=== PATIENT | female | born 1960 | race Caucasian/White ===

== ENCOUNTER 2021-04-24 15:43 | Emergency (ER) | payer OTHER ==
[2021-04-24 17:17] VITALS: BP 158/93; PULSE 118; RESP 16; TEMP 98.4
[2021-04-24] MEDS ORDERED: ACETAMINOPHEN TAB 325 MG TAB PO STA (17:18)
--- NOTE | 2021-04-24 17:20 | ED ---
Head Injury HPI - General Chief complaint: Head Injury Stated complaint: Head injury, [facility] Time Seen by Provider: 04/24/21 17:17 Source: family, RN notes reviewed Mode of arrival: ambulatory Limitations: no limitations - History of Present Illness Initial comments: 60-year-old female presents emergency Department chief complaint of head injury. Patient states she went to go pick something up at her facility states that they smashed her head into the wall. Patient has swelling of her left side of her forehead, pain. Patient didn't lose conscious. Patient complains of slight dizziness, headache. No blood thinners. Denies any neck pain patient states she has pain around her left eye denies any visual disturbance. - Related Data Home Medications Medication Instructions Recorded Confirmed Albuterol Inhaler (Mhu) [Ventolin 1 - 2 puff INHALATION Q6HR PRN 08/07/15 08/07/15 Hfa Inhaler] Albuterol Inhaler (Mhu) [Ventolin 1 - 2 puff INHALATION Q6HR PRN 08/07/15 08/07/15 Hfa Inhaler] FLUoxetine HCL [PROzac] 20 mg PO DAILY 08/07/15 08/07/15 Previous Rx's Medication Instructions Recorded Albuterol Inhaler (Mhu) [Ventolin 1 - 2 puff INHALATION Q6HR PRN #1 08/07/15 Hfa Inhaler (Mhu)] inhaler Albuterol Nebulized [Ventolin 2.5 mg INHALATION Q4H #25 nebu 08/07/15 Nebulized] predniSONE 60 mg PO DIRECTED #30 tab 08/07/15 Allergies/Adverse reactions: Allergies Allergy/AdvReac Type Severity Reaction Status Date / Time No Known Allergies Allergy Verified 04/24/21 17:14 Review of Systems ROS Statement: Those systems with pertinent positive or pertinent negative responses have been documented in the HPI. ROS Other: All systems not noted in ROS Statement are negative. Past Medical History Past Medical History: Asthma History of Any Multi-Drug Resistant Organisms: None Reported Past Surgical History: No Surgical Hx Reported Past Psychological History: Depression Smoking Status: Never smoker Past Alcohol Use History: None Reported Past Drug Use History: None Reported General Exam Limitations: no limitations General appearance: alert, in no apparent distress Head exam: Present: atraumatic, normocephalic. Absent: normal inspection (left sided forehead swelling, ecchymosis noted) Eye exam: Present: normal appearance, PERRL, EOMI, periorbital swelling. Absent: scleral icterus, conjunctival injection ENT exam: Present: normal exam, normal oropharynx, mucous membranes moist Neck exam: Present: normal inspection, full ROM. Absent: tenderness, meningismus, lymphadenopathy Respiratory exam: Present: normal lung sounds bilaterally. Absent: respiratory distress, wheezes, rales, rhonchi, stridor Cardiovascular Exam: Present: regular rate, normal rhythm, normal heart sounds. Absent: systolic murmur, diastolic murmur, rubs, gallop, clicks Neurological exam: Present: alert, oriented X3, CN II-XII intact, reflexes normal. Absent: motor sensory deficit Skin exam: Present: warm, dry, intact, normal color. Absent: rash Course Vital Signs 04/24/21 17:15 Temperature 98.4 F Pulse Rate 118 H Respiratory 16 Rate Blood Pressure 158/93 O2 Sat by Pulse 92 L Oximetry Medical Decision Making - Medical Decision Making CT of the brain and facial bones were obtained there is a large hematoma noted, no intracranial process there is incidental finding of possible aneurysm patient will follow outpatient for MRI. Return parameters discussed. Disposition Clinical Impression: Closed head injury, Hematoma of scalp Disposition: HOME SELF-CARE Condition: Stable Instructions (If sedation given, give patient instructions): Head Injury (ED) Additional Instructions: Please return to the Emergency Department if symptoms worsen or any other concerns. Is patient prescribed a controlled substance at d/c from ED?: No Referrals: Emi Gonsales MD [Primary Care Provider] - 1-2 days Time of Disposition: 20:06
--- NOTE | 2021-04-24 19:59 | CT ---
EXAMINATION TYPE: CT brain wo con DATE OF EXAM: 04/24/2021 COMPARISON: None HISTORY:60-year-old female Head injury, pain TECHNIQUE: Examination was done in axial plane without intravenous contrast. Coronal and sagittal r econstructions performed. CT DLP: 1351.4 mGycm Automated exposure control for dose reduction was used. FINDINGS: Left frontal scalp contusion and likely associated laceration. Underlying calvarial fracture. There is no evidence of acute intracranial hemorrhage, acute ischemic changes, mass, mass-effect, or extra-axial fluid collection. There is no effacement of cerebral sulci or basal subarachnoid cister ns. There is no hydrocephalus. There is no midline shift. Yu-white matter distinction is preserv ed. Benign basal ganglionic calcifications. There is there is bulbous, 5 mm prominence to the tip of the basilar artery, axial image 20, sagittal image 28, and coronal image 33. Further MR angiography evaluation can assess for potential fusiform aneurysm at its terminus. Mastoid air cells well pneumatized. Facial bones reported separately. IMPRESSION: 1. Left frontal scalp contusion and likely associated laceration. No underlying skull fracture or acu te intracranial abnormality seen. 2. 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 Follow-up MR angiography of the circ le of [place] to exclude aneurysm. 3. Facial bones reported separately.
--- NOTE | 2021-04-24 20:03 | CT ---
EXAMINATION TYPE: CT facial bones wo con DATE OF EXAM: 04/24/2021 COMPARISON: None HISTORY: 60-year-old female Facial trauma, pain TECHNIQUE: Contiguous axial scanning of the facial bones without IV contrast. Coronal reconstructions performed. CT DLP: 1351.4 mGycm Automated exposure control for dose reduction was used. FINDINGS: Incidental enlarged right submandibular space lymph node measuring 1.5 cm. Additionally followed clin ically to ensure resolution. If the lymph node persists or enlarges, follow-up ultrasound or possible tissue sampling should be considered. The mandible and TMJs as well as the pterygoid plates and zygomatic arches are intact. Nasal bone is intact. Facial bones are intact. Orbits and globes appear intact. Slight leftward nasal septal deviation. Moderate mucosal thickening ethmoid air cells and mild along the floor of the maxillary sinuses. No air-fluid levels. IMPRESSION: 1. NO ACUTE FACIAL BONE FRACTURE. 2. MODERATE CHRONIC ETHMOID SINUS DISEASE AND ADDITIONAL MUCOSAL THICKENING ALONG THE FLOORS OF THE M AXILLARY SINUSES. 3. INCIDENTAL ENLARGED RIGHT SUBMANDIBULAR SPACE LYMPH NODE MEASURING 1.5 CM. RECOMMEND CLINICAL FOLL OW-UP TO ENSURE GRADUAL RESOLUTION IN THE EVENT THAT THIS IS REACTIVE/POST INFLAMMATORY. IF THE LYMPH NODE PERSISTS OR ENLARGES, FOLLOW-UP ULTRASOUND AND/OR TISSUE SAMPLING SHOULD BE CONSIDERED TO EXCLU DE METASTATIC DISEASE.
== END 2021-04-24 20:19 | disposition home or self-care (01) ==
LOC: EC 15:43
DX: S00.03XA Contusion of scalp, initial encounter (principal); J45.909 Unspecified asthma, uncomplicated; F32.9 Major depressive disorder, single episode, unspecified; Z79.51 Long term (current) use of inhaled steroids; Z79.52 Long term (current) use of systemic steroids; Z79.899 Other long term (current) drug therapy; W22.01XA Walked into wall, initial encounter
CPT/HCPCS: 70450; 70486; 99284

== ENCOUNTER → 2021-04-29 | Outpatient (CLI) | payer OTHER ==
--- NOTE | 2021-04-29 07:54 | MR ---
EXAMINATION TYPE: MR brain wo/w con DATE OF EXAM: 04/29/2021 COMPARISON: CT brain 5 days ago. HISTORY: Brain aneurysm, trauma, abnormal CT TECHNIQUE: Multiplanar, multisequence images of the brain and brainstem is performed without and with IV contras t, utilizing 6 mL intravenous Gadavist . FINDINGS: Diffusion weighted images demonstrate no evidence of a recent infarct or other diffusion ab normality. There is no extra-axial fluid collection or significant white matter signal abnormality. The ventricular system and cisternal spaces are normal in size and appearance. The brain volume is age appropriate. T2 Star weighted images show bilateral basal ganglia calcifications. No suspicious i ntraparenchymal blood product is seen. Midline structures demonstrate normal morphology. The craniocervical junction appears within normal limits. Post contrast images demonstrate no abnormal enhancement. Some prominence at the basilar tip favors dolichoectasia over focal aneurysm. Findings can be better evaluated with CTA or MRA study. T he dural venous sinuses appear patent. Mild to moderate mucosal thickening inferior aspect bilateral maxillary sinuses is redemonstrated. Near complete resolution of left frontal scalp hematoma axial im age 23. IMPRESSION: Mild/moderate inferior chronic maxillary sinus disease redemonstrated. Resolving left fro ntal scalp hematoma noted. Stable prominence basilar tip favored dolichoectasia ovary aneurysm. Findi ngs better evaluated with CTA or MRA study.
== END | disposition home or self-care (01) ==
LOC: RADMRIMAIN 06:10
PROVIDERS: ATTEND Internal Medicine
DX: S00.03XA Contusion of scalp, initial encounter (principal)
CPT/HCPCS: 70553; A9585

== ENCOUNTER → 2022-12-05 | Outpatient (CLI) | payer OTHER ==
--- NOTE | 2022-12-05 06:23 | MR ---
EXAMINATION TYPE: MR angio head wo con DATE OF EXAM: 12/05/2022 COMPARISON: CT brain April 24, 2021. MRI brain April 29, 2021 HISTORY: Headaches, rule out brain aneurysm TECHNIQUE: Time of flight images focusing on the [place] were performed without contrast.. 2-D and 3-D postprocessing imaging is performed on independent workstation. FINDINGS: Codominant vertebral arteries are patent to the basilar junction. There are patent small ca liber bilateral posterior communicating arteries. There is no significant focal stenosis or aneurysm in the posterior circulation. Images of the anterior circulation show tortuous course to the distal internal carotid arteries. Ther e is nonvisualized or hypoplastic anterior communicating artery. No significant focal stenosis or ane urysm in the anterior circulation is seen. IMPRESSION: No aneurysm at the level of the [place].
== END | disposition home or self-care (01) ==
LOC: RADMRIMAIN 05:57
PROVIDERS: ATTEND Neurological Surgery
DX: I67.1 Cerebral aneurysm, nonruptured (principal)
CPT/HCPCS: 70544

== ENCOUNTER → 2023-11-27 | Outpatient (CLI) | payer OTHER ==
--- NOTE | 2023-11-30 14:38 | MM ---
Reason for Exam: Screening (asymptomatic). Last mammogram was performed 20 year(s) and 10 month(s) ago. Patient History: Menarche at age 14. First Full-Term at age 26. Postmenopausal. Risk Values: Rabia 5 year model risk: 1.3%. NCI Lifetime model risk: 6.4%. Prior Study Comparison: 09/10/2001 Bilateral Diagnostic Mammogram, [facility]. 02/02/2003 Bilateral Screening Mammogram, [facility]. 02/10/2003 Right Special View Mammogram, [facility]. Tissue Density: The breasts are heterogeneously dense, which may obscure small masses. Findings: Right breast: Dense fibroglandular tissue posterior to the nipple Left breast: Dense fibroglandular tissue posterior to the nipple. Overall Assessment: Incomplete: need additional imaging evaluation, BI-RAD 0 Management: Diagnostic Mammogram of both breasts. Spot compression imaging of the retroareolar region bilaterally with 3-D. [facility] will attempt to contact patient to return for supplemental views and ultrasound if indicated. Patient should continue monthly self-breast exams. A clinical breast exam by your physician is recommended on an annual basis. This exam should not preclude additional follow-up of suspicious palpable abnormalities. Note on Rabia scores and lifetime risk: 1. A Rabia score greater than 3% is considered moderate risk. If this is the case, consider specialist referral to assess eligibility for a risk reducing agent. 2. If overall lifetime risk for the development of breast cancer is 20% or higher, the patient may qualify for future screening with alternating mammogram and breast MRI. Electronically signed and approved by: Neel Marcelino DO
== END | disposition home or self-care (01) ==
LOC: RADMAMWWP 11:02
PROVIDERS: ATTEND Family Medicine
DX: Z12.31 Encounter for screening mammogram for malignant neoplasm of breast (principal); Z78.0 Asymptomatic menopausal state
CPT/HCPCS: 77067

== ENCOUNTER → 2023-12-02 | Outpatient (CLI) | payer OTHER ==
--- NOTE | 2023-12-02 10:40 | MM ---
Reason for Exam: Follow-up at short interval from prior study. Last screening mammogram was performed less than 1 month ago. Patient History: Menarche at age 14. First Full-Term at age 26. Postmenopausal. Risk Values: Rabia 5 year model risk: 1.3%. NCI Lifetime model risk: 6.4%. Prior Study Comparison: 02/10/2003 Right Special View Mammogram, [facility]. 11/27/2023 Bilateral MG screening mammo w CAD, [facility]. Tissue Density: There are scattered areas of fibroglandular density. Findings: Analyzed By CAD. Dense subareolar tissues are redemonstrated on both sides. On additional views, some of these densities disperse. No definite suspicious persisting mass is seen. Six-month follow-up recommended. Overall Assessment: Probably benign, BI-RAD 3 Management: Diagnostic Mammogram of both breasts in 6 months. . Results were given to the patient verbally at the time of exam. Patient should continue monthly self-breast exams. A clinical breast exam by your physician is recommended on an annual basis. This exam should not preclude additional follow-up of suspicious palpable abnormalities. Note on Rabia scores and lifetime risk: 1. A Rabia score greater than 3% is considered moderate risk. If this is the case, consider specialist referral to assess eligibility for a risk reducing agent. 2. If overall lifetime risk for the development of breast cancer is 20% or higher, the patient may qualify for future screening with alternating mammogram and breast MRI. Electronically signed and approved by: Pj Shaffer M.D. Radiologist
== END | disposition home or self-care (01) ==
LOC: RADMAMWWP 10:02
PROVIDERS: ATTEND Family Medicine
DX: R92.8 Other abnormal and inconclusive findings on diagnostic imaging of breast (principal); Z78.0 Asymptomatic menopausal state
CPT/HCPCS: 77062; 77066

== ENCOUNTER 2024-03-29 12:40 | Emergency (ER) | payer OTHER ==
[2024-03-29 12:46] VITALS: RESP 18; TEMP 98.1
--- NOTE | 2024-03-29 13:03 | ED ---
Back Pain HPI - General Source: patient, RN notes reviewed Mode of arrival: ambulatory Limitations: no limitations - History of Present Illness MD Complaint: back pain <Chanel Duran - Last Filed: 03/29/24 13:01> - General Source: patient, RN notes reviewed Mode of arrival: ambulatory Limitations: no limitations <Audrey Robbins - Last Filed: 03/29/24 18:18> - General Chief Complaint: Back Pain/Injury Stated Complaint: [facility]HS-back pain Time Seen by Provider: 03/29/24 12:55 - History of Present Illness Initial Comments: Quick Note: This is a 63-year-old female who presents to the emergency department for back pain. States that she was bending over at work one week ago and when she went to stand back up developed pain across her lower back. Pain has continued to persist, but states that it is now more right sided. Denies any loss of bowel/bladder control or saddle anesthesia. Patient noted to be tachycardic on arrival, states that she feels very anxious. (Chanel Duran) 63-year-old female presented to the ER with a chief complaint of back pain. Patient states one week ago on 03-22-2024 she was at work opening a wheelchair when she felt a sharp pain in her lower back. He states the pain has been persistent and that is now radiating more to the right side. She has tried taking [id number] Tylenol and aspirin without relief. She denies any bowel or bladder incontinence, saddle paresthesias, fevers or history of IV drug use. She denies any weakness. States the pain is a sharp achy pain. Denies any other injuries or complaints. Patient does report she has whitecoat syndrome and anxiety which she recently had started Zoloft. She denies any current chest pain, shortness of breath, dizziness, lightheadedness, nausea or vomiting. (Audrey Robbins) - Related Data Home Medications Medication Instructions Recorded Confirmed Albuterol Inhaler [Ventolin Hfa 1 - 2 puff INHALATION Q6HR PRN 08/07/15 08/07/15 Inhaler] Albuterol Inhaler [Ventolin Hfa 1 - 2 puff INHALATION Q6HR PRN 08/07/15 08/07/15 Inhaler] FLUoxetine HCL [PROzac] 20 mg PO DAILY 08/07/15 08/07/15 Previous Rx's Medication Instructions Recorded Albuterol Inhaler [Ventolin Hfa 1 - 2 puff INHALATION Q6HR PRN #1 08/07/15 Inhaler] inhaler Albuterol Nebulized [Ventolin 2.5 mg INHALATION Q4H #25 nebu 08/07/15 Nebulized] predniSONE 60 mg PO DIRECTED #30 tab 08/07/15 Cyclobenzaprine [Flexeril] 10 mg PO HS PRN #15 tab 03/29/24 Lidocaine 4% Patch 1 patch TOPICAL DAILY #30 patch 03/29/24 Allergies Allergy/AdvReac Type Severity Reaction Status Date / Time ibuprofen AdvReac Unknown Verified 03/29/24 12:46 Review of Systems ROS Other: All systems not noted in ROS Statement are negative. <Chanel Duran - Last Filed: 03/29/24 13:01> ROS Other: All systems not noted in ROS Statement are negative. <Audrey Robbins - Last Filed: 03/29/24 18:18> ROS Statement: Those systems with pertinent positive or pertinent negative responses have been documented in the HPI. Past Medical History Past Medical History: Asthma, Hypertension History of Any Multi-Drug Resistant Organisms: None Reported Past Surgical History: No Surgical Hx Reported Past Psychological History: Anxiety, Depression Smoking Status: Never smoker Past Alcohol Use History: None Reported Past Drug Use History: None Reported <Chanel Duran - Last Filed: 03/29/24 13:01> General Exam Limitations: no limitations <Chanel Duran - Last Filed: 03/29/24 13:01> General appearance: alert, in no apparent distress, anxious Respiratory exam: Present: normal lung sounds bilaterally. Absent: respiratory distress, wheezes, rales, rhonchi, stridor Cardiovascular Exam: Present: normal rhythm, tachycardia, normal heart sounds Extremities exam: Present: normal inspection, full ROM, normal capillary refill, other (2+ PT and DP pulses bilaterally. Negative straight leg raise bilaterally. Bilateral lower extremity strength 5+.). Absent: tenderness, pedal edema, joint swelling, calf tenderness Back exam: Present: normal inspection, tenderness (Lumbar spine and right pelvic gurdle) Neurological exam: Present: alert, oriented X3, CN II-XII intact Skin exam: Present: warm, dry, intact, normal color. Absent: rash <Audrey Robbins - Last Filed: 03/29/24 18:18> - General Exam Comments Initial Comments: Visual Physical Exam Vital signs reviewed General: Well-appearing, nontoxic, no acute distress. Head: Normocephalic, atraumatic Eyes: PERRLA, EOMI ENT: Airway patent Chest: Nonlabored breathing Skin: No visual rash, normal skin tone Neuro: Alert and oriented 3 Musculoskeletal: No gross abnormalities (Chanel Duran) Course <Audrey Robbins - Last Filed: 03/29/24 18:18> Vital Signs 03/29/24 03/29/24 03/29/24 12:41 14:26 17:14 Temperature 98.1 F 98.1 F Pulse Rate 130 H 92 79 Respiratory 18 18 18 Rate Blood Pressure 142/73 137/79 O2 Sat by Pulse 98 98 Oximetry - Reevaluation(s) Reevaluation #1: 03/29/24 14:30 Patient reevaluated. Patient updated on x-ray results. Due to tachycardia patient is agreeable for blood draw to rule out PE at this time. She denies any history of blood clots, blood thinner use. She states she quit smoking approximately 2 years ago. (Audrey Robbins) Medical Decision Making <Chanel Duran - Last Filed: 03/29/24 13:01> - Lab Data Result diagrams: 03/29/24 15:07 03/29/24 15:07 - EKG Data -: EKG Interpreted by Me - Radiology Data Radiology results: report reviewed, image reviewed <Audrey Robbins - Last Filed: 03/29/24 18:18> - Medical Decision Making I performed the QuickNote portion of this chart. Signed Chanel Duran PA-C. (Chanel Duran) Was pt. sent in by a medical professional or institution (ELLIOTT Casey, CUSTOMER SUPPORT TECHNICIAN, urgent care, hospital, or assisted...) When possible be specific @ -No Did you speak to anyone other than the patient for history (EMS, parent, family, police, friend...)? What history was obtained from this source @ -No Did you review nursing and triage notes (agree or disagree)? Why? @ -I reviewed and agree with nursing and triage notes Were old charts reviewed (outside hosp., previous admission, EMS record, old EKG, old radiological studies, urgent care reports/EKG's, assisted records)? Report findings @ -No old charts were reviewed Differential Diagnosis (chest pain, altered mental status, abdominal pain women, abdominal pain men, vaginal bleeding, weakness, fever, dyspnea, syncope, he adache, dizziness, GI bleed, back pain, seizure, CVA, palpatations, mental health, musculoskeletal)? @ -Differential Back Pain: Strain, zoster, cauda equina syndrome, epidural abscess, vertebral osteomyelitis, discitis, fracture, subluxation, disc herniation, DJD, spinal stenosis, dissection, AAA, pancreatitis, peptic ulcer disease, pyelonephritis, kidney stone, this is not meant to be an all-inclusive list. EKG interpreted by me (3pts min.). @ -As above X-rays interpreted by me (1pt min.). @ -Lumbar spine x-ray showing no acute fractures. There is mild to moderate multilevel level degenerative disc disease. CT interpreted by me (1pt min.). @ -None done U/S interpreted by me (1pt. min.). @ -None done What testing was considered but not performed or refused? (CT, X-rays, U/S, labs)? Why? @ -None What meds were considered but not given or refused? Why? @ -None Did you discuss the management of the patient with other professionals (professionals i.e. , PA, CUSTOMER SUPPORT TECHNICIAN, lab, RT, psych nurse, health care social worker, ip litigation paralegal, teacher, public health officer, case management coordinator)? Give summary @ -No Was smoking cessation discussed for >3mins.? @ -No Was critical care preformed (if so, how long)? @ -No Were there social determinants of health that impacted care today? How? (Homelessness, low income, unemployed, alcoholism, drug addiction, transportation, low edu. Level, literacy, decrease access to med. care, long term, rehab)? @ -No Was there de-escalation of care discussed even if they declined (Discuss DNR or withdrawal of care, Hospice)? DNR status @ -No What co-morbidities impacted this encounter? (DM, HTN, Smoking, COPD, CAD, Cancer, CVA, ARF, Chemo, Hep., AIDS, mental health diagnosis, sleep apnea, morbid obesity)? @ -Anxiety Was patient admitted / discharged? Hospital course, mention meds given and route, prescriptions, significant lab abnormalities, going to OR and other pertinent info. @ -Discharge. 63-year-old female presented to the ER with a chief complaint of lumbar back pain. History and physical exam completed. Vitals upon arrival remarkable for temperature 98.1, heart rate 130, respiratory rate 18, blood pressure 142/73, oxygen saturation 90% on room air. Patient in no signs of acute distress but mildly anxious on exam. Tenderness to lumbar spine and right pelvic girdle. Bilateral lower extremities neurovascular intact. No overlying skin changes. Patient denied any red flag back pain symptoms indicative cauda equina syndrome. X-rays obtained negative for acute process. Due to tachycardia laboratory studies obtained to rule out cardiac issue. D-dimer 0.25 and troponin<0.012. Otherwise labs unremarkable. EKG showing sinus tachycardia with ST depression in V3. No acute T wave abnormalities. Patient given Flexeril and lidocaine patch for pain control in the ER. Upon reevaluation, patient resting comfortably in exam room in no signs of acute distress. Pain believed to be musculoskeletal in nature. Tachycardia believed to be anxiety as at discharge this has since resolved. Flexeril and lidocaine patches prescribed. Advise close follow-up with PCP. Strict return parameters discussed. Patient discharged in stable condition. Patient verbally expressed understanding agree with care plan. Case discussed with attending, Dr. Wilcox. Undiagnosed new problem with uncertain prognosis? @ -No Drug Therapy requiring intensive monitoring for toxicity (Heparin, Nitro, Insulin, Cardizem)? @ -No Were any procedures done? @ -No Diagnosis/symptom? @ -Musculoskeletal pain/lumbar strain/anxiety Acute, or Chronic, or Acute on Chronic? @ -Acute Uncomplicated (without systemic symptoms) or Complicated (systemic symptoms)? @ -Uncomplicated Side effects of treatment? @ -No Exacerbation, Progression, or Severe Exacerbation? @ -No Poses a threat to life or bodily function? How? (Chest pain, USA, NE, pneumonia, PE, COPD, DKA, ARF, appy, cholecystitis, CVA, Diverticulitis, Homicidal, Suicidal, threat to staff... and all critical care pts) @ -No (Audrey Robbins) - Lab Data Lab Results 03/29/24 03/29/24 03/29/24 Range/Units 15:07 15:07 15:07 WBC 7.7 (3.8-10.6) k/uL RBC 4.08 (3.80-5.40) m/uL Hgb 13.0 (11.4-16.0) gm/dL Hct 40.2 (34.0-46.0) % MCV 98.5 (80.0-100.0) fL MCH 31.8 (25.0-35.0) pg MCHC 32.3 (31.0-37.0) g/dL RDW 12.8 (11.5-15.5) % Plt Count 344 (150-450) k/uL MPV 7.0 Neutrophils % 72 % Lymphocytes % 17 % Monocytes % 7 % Eosinophils % 2 % Basophils % 1 % Neutrophils # 5.5 (1.3-7.7) k/uL Lymphocytes # 1.3 (1.0-4.8) k/uL Monocytes # 0.5 (0-1.0) k/uL Eosinophils # 0.2 (0-0.7) k/uL Basophils # 0.1 (0-0.2) k/uL PT 9.7 L (10.0-12.5) sec INR 0.9 (<1.2) APTT 24.8 (22.0-30.0) sec D-Dimer 0.25 (<0.60) mg/L FEU Sodium 138 (137-145) mmol/L Potassium 4.2 (3.5-5.1) mmol/L Chloride 103 (98-107) mmol/L Carbon Dioxide 27 (22-30) mmol/L Anion Gap 8 mmol/L BUN 17 (7-17) mg/dL Creatinine 0.68 (0.52-1.04) mg/dL Est GFR (CKD-EPI)AfAm >90 (>60 ml/min/1.73 sqM) Est GFR (CKD-EPI)NonAf >90 (>60 ml/min/1.73 sqM) Glucose 92 (74-99) mg/dL Calcium 10.4 H (8.4-10.2) mg/dL Total Bilirubin 0.8 (0.2-1.3) mg/dL AST 26 (14-36) U/L ALT 23 (4-34) U/L Alkaline Phosphatase 87 (38-126) U/L Troponin I (0.000-0.034) ng/mL Total Protein 7.8 (6.3-8.2) g/dL Albumin 4.7 (3.5-5.0) g/dL 03/29/24 Range/Units 15:07 WBC (3.8-10.6) k/uL RBC (3.80-5.40) m/uL Hgb (11.4-16.0) gm/dL Hct (34.0-46.0) % MCV (80.0-100.0) fL MCH (25.0-35.0) pg MCHC (31.0-37.0) g/dL RDW (11.5-15.5) % Plt Count (150-450) k/uL MPV Neutrophils % % Lymphocytes % % Monocytes % % Eosinophils % % Basophils % % Neutrophils # (1.3-7.7) k/uL Lymphocytes # (1.0-4.8) k/uL Monocytes # (0-1.0) k/uL Eosinophils # (0-0.7) k/uL Basophils # (0-0.2) k/uL PT (10.0-12.5) sec INR (<1.2) APTT (22.0-30.0) sec D-Dimer (<0.60) mg/L FEU Sodium (137-145) mmol/L Potassium (3.5-5.1) mmol/L Chloride (98-107) mmol/L Carbon Dioxide (22-30) mmol/L Anion Gap mmol/L BUN (7-17) mg/dL Creatinine (0.52-1.04) mg/dL Est GFR (CKD-EPI)AfAm (>60 ml/min/1.73 sqM) Est GFR (CKD-EPI)NonAf (>60 ml/min/1.73 sqM) Glucose (74-99) mg/dL Calcium (8.4-10.2) mg/dL Total Bilirubin (0.2-1.3) mg/dL AST (14-36) U/L ALT (4-34) U/L Alkaline Phosphatase (38-126) U/L Troponin I <0.012 (0.000-0.034) ng/mL Total Protein (6.3-8.2) g/dL Albumin (3.5-5.0) g/dL - EKG Data EKG Comments: EKG taken at 12: 57 showing a sinus tachycardia. St depression V3. No T wave abnormalities. Normal axis. Ventricular rate 127, NE interval 165, QRS duration 82, QT/QTc 335/410. (Audrey Robbins) Disposition <Chanel Duran - Last Filed: 03/29/24 13:01> Is patient prescribed a controlled substance at d/c from ED?: No Time of Disposition: 17:03 <Audrey Robbins - Last Filed: 03/29/24 18:18> Clinical Impression: Lumbar strain, Musculoskeletal pain Disposition: HOME SELF-CARE Condition: Stable Instructions (If sedation given, give patient instructions): Acute Low Back Pain (ED) Additional Instructions: Follow-up with PCP. You may take Flexeril prior to bed. Please be advised it may make you drowsy and/or tired. Return to the ER for any new or worsening con cerns. Prescriptions: Cyclobenzaprine [Flexeril] 10 mg PO HS PRN #15 tab PRN Reason: Muscle Spasm Lidocaine 4% Patch 1 patch TOPICAL DAILY #30 patch Referrals: Harshil Ordaz DO [Primary Care Provider] - 1-2 days
[2024-03-29] MEDS: LIDOCAINE 4% PATCH TOPICAL ONE (14:08)
--- NOTE | 2024-03-29 14:08 | XR ---
EXAMINATION TYPE: XR lumbar spine 2 or 3V DATE OF EXAM: 03/29/2024 1:45 PM CLINICAL INDICATION: Female, 63 years old with history of Low back pain; COMPARISON: None TECHNIQUE: XR lumbar spine 2 or 3V - Frontal, lateral and coned in L5-S1 lateral views of the spine. FINDINGS: No evidence of any acute osseous pathology. No evidence of loss of vertebral body height i s seen. There is normal alignment of the lumbar vertebral bodies. Scattered disc space narrowing. Mul tilevel marginal osteophyte formation throughout the visualized spine. There is facet joint arthropat hy throughout the spine. Scattered at least mild neural foraminal stenosis. IMPRESSION: 1. No acute fracture. 2. Mild to moderate multilevel disc degeneration.
[2024-03-29] MEDS: CYCLOBENZAPRINE 5 MG TAB PO STA (14:09)
[2024-03-29 15:32] LABS: Basophils # (A) 0.1 k/uL (0-0.2); Basophils % (A) 1 %; Eosinophils # (A) 0.2 k/uL (0-0.7); Eosinophils % (A) 2 %; HCT 40.2 % (34.0-46.0); Lymphocytes # (A) 1.3 k/uL (1.0-4.8); Lymphocytes % (A) 17 %; MCH 31.8 pg (25.0-35.0); MCHC 32.3 g/dL (31.0-37.0); MCV 98.5 fL (80.0-100.0); Monocytes # (A) 0.5 k/uL (0-1.0); Monocytes % (A) 7 %; Neutrophils # (A) 5.5 k/uL (1.3-7.7); Neutrophils % (A) 72 %; Platelet Count 344 k/uL (150-450); RBC 4.08 m/uL (3.80-5.40); RDW 12.8 % (11.5-15.5); WBC 7.7 k/uL (3.8-10.6)
[2024-03-29 15:45] LABS: INR 0.9 (<1.2); Partial Thromboplastin Time 24.8 sec (22.0-30.0); Prothrombin Time 9.7 sec (10.0-12.5)
[2024-03-29 16:55] LABS: ALT 23 U/L (4-34); AST 26 U/L (14-36); African American GFR (CKD) >90 (>60 ml/min/1.73 sqM); Albumin 4.7 g/dL (3.5-5.0); Alkaline Phosphatase 87 U/L (38-126); Anion Gap 8 mmol/L; Blood Urea Nitrogen 17 mg/dL (7-17); Calcium 10.4 mg/dL (8.4-10.2); Carbon Dioxide 27 mmol/L (22-30); Chloride 103 mmol/L (98-107); Glucose 92 mg/dL (74-99); Non-African American GFR(CKD) >90 (>60 ml/min/1.73 sqM); Potassium 4.2 mmol/L (3.5-5.1); Sodium 138 mmol/L (137-145); Total Bilirubin 0.8 mg/dL (0.2-1.3); Total Protein 7.8 g/dL (6.3-8.2)
[2024-03-29 17:18] VITALS: BP 137/79; PULSE 79
== END 2024-03-29 17:17 | disposition home or self-care (01) ==
LOC: EC 12:40
DX: M54.50 Low back pain, unspecified
CPT/HCPCS: 36415; 72100; 80053; 84484; 85025; 85379; 85610; 85730; 93005; 99284

== ENCOUNTER → 2024-06-06 | Outpatient (CLI) | payer OTHER ==
--- NOTE | 2024-06-06 10:44 | MM ---
Reason for Exam: Follow-up at short interval from prior study. Last screening mammogram was performed 6 month(s) ago. Patient History: Menarche at age 14. First Full-Term at age 26. Postmenopausal. Risk Values: Rabia 5 year model risk: 1.3%. NCI Lifetime model risk: 6.4%. Tissue Density: There are scattered areas of fibroglandular density. Findings: Analyzed By CAD. Retroareolar density seen bilaterally is improved. No new masses or distortion. No suspicious calcifications. Overall Assessment: Benign, BI-RAD 2 Management: Screening Mammogram of both breasts in 1 year. . Results were given to the patient verbally at the time of exam. Patient should continue monthly self-breast exams. A clinical breast exam by your physician is recommended on an annual basis. This exam should not preclude additional follow-up of suspicious palpable abnormalities. Note on Rabia scores and lifetime risk: 1. A Rabia score greater than 3% is considered moderate risk. If this is the case, consider specialist referral to assess eligibility for a risk reducing agent. 2. If overall lifetime risk for the development of breast cancer is 20% or higher, the patient may qualify for future screening with alternating mammogram and breast MRI. [facility], , 06/06/2024 10:41 AM. Electronically signed and approved by: Juan Shepard M.D. Radiologis
== END | disposition home or self-care (01) ==
LOC: RADMAMWWP 10:18
PROVIDERS: ATTEND Family Medicine
DX: R92.8 Other abnormal and inconclusive findings on diagnostic imaging of breast (principal); Z78.0 Asymptomatic menopausal state; R92.323 Mammographic fibroglandular density, bilateral breasts
CPT/HCPCS: 77062; 77066